=== PATIENT | male | born 2005 | race Hispanic/Latino ===

== ENCOUNTER 2024-09-21 00:10 | Emergency (ER) | payer OTHER, SELFPAY ==
--- NOTE | 2024-09-21 01:09 | EDPHYS ---
Physician Documentation [facility] Name: Neo Greene Age: 19 yrs Sex: Male : 2005 Arrival Date: 09/21/2024 Time: 00:10 Bed IW2 Private MD: ED Physician Kike Forbes HPI: 09/21 00:41 This 19 yrs old Male presents to ER via Wheelchair with complaints of Knee sb4 Injury. 00:41 The patient presents with an injury, pain, that is acute. The complaints affect the sb4 right knee. Context: The problem was sustained at a sports field or court, resulted from twisting of the extremity, the patient is not able to bear weight, the patient is not able to ambulate, Problem is a result from a previous injury: No. Onset: The symptoms/episode began/occurred just prior to arrival. Modifying factors:. Patient states he twisted his knee awkwardly while playing soccer this evening. States he cannot bear weight. Believes he tore his ACL. Historical: - Allergies: 00:35 No Known Allergies; ha1 - PMHx: 00:35 None; ha1 - PSHx: 00:35 None; ha1 - Immunization history:: Adult Immunizations up to date. - Infectious Disease History:: Denies. - Social history:: Smoking status: Patient denies any tobacco usage or history of. ROS: 00:41 Constitutional: Negative for fever, chills, and weight loss, sb4 00:41 MS/extremity: Positive for injury or acute deformity, pain, of the right knee, 00:41 All other systems are negative, Exam: 00:41 Constitutional: This is a well developed, well nourished patient who is awake, alert, sb4 and in no acute distress. Head/Face: Normocephalic, atraumatic. Eyes: Extra-ocular motions intact. Periorbital areas with no swelling, redness, or edema. ENT: Mucous membranes moist. Respiratory: No increased work of breathing, no retractions or nasal flaring. Abdomen/GI: Soft, non-tender, no distension. Skin: Warm, dry with normal turgor. Normal color with no rashes, no lesions, and no evidence of cellulitis. 00:41 Musculoskeletal/extremity: Joints: the right knee displays painful range of motion, swelling, tenderness, Vital Signs: 00:30 BP 117 / 59; Pulse 68; Resp 17; Temp 98.3; Pulse Ox 99% on R/A; Weight 86.18 kg; Height ha1 5 ft. 6 in. ; 00:30 Body Mass Index 30.67 (86.18 kg, 167.64 cm) ha1 MDM: 00:16 Medical Screening Exam initiated sb4 00:43 Differential diagnosis: Meniscal injury, MCL sprain/tear, fracture. sb4 01:07 Data reviewed: vital signs, nurses notes, radiologic studies, and as a result, I will sb4 discharge patient. Counseling: I had a detailed discussion with the patient and/or guardian regarding the historical points, exam findings, and any diagnostic results supporting the discharge/admit diagnosis, radiology results, the need for outpatient follow up, a orthopedic surgeon, to return to the emergency department if symptoms worsen or persist or if there are any questions or concerns that arise at home. 01:12 Independent interpretation of the following test(s) in the Emergency Department X-Ray: sb4 My interpretation is My interpretation of the right knee x-ray images is no acute fracture or dislocation. 09/21 00:32 Order name: Knee Right 3 View XRAY sb4 09/21 00:32 Order name: Knee Immobilizer; Complete Time: 01:47 sb4 09/21 00:32 Order name: Crutches; Complete Time: 01:47 sb4 Administered Medications: No medications were administered Disposition: 21:49 Co-signature as Attending Physician, Kike Forbes MD I agree with the assessment sp4 and plan of care. I reviewed the patient's care provided by the Advanced Practice Provider and agree with the diagnosis and treatment plan. Disposition Summary: 09/21/24 01:08 Discharge Ordered Notes: Location: Home sb4 Problem: new sb4 Symptoms: are unchanged sb4 Condition: Stable sb4 Diagnosis - Acute ligamentous injury of right knee sb4 Followup: sb4 - With: Jose Cruz Fitzpatrick MD - When: As needed - Reason: Further diagnostic work-up, Recheck today's complaints, Re-evaluation by your physician Followup: sb4 - With: Gil Encinas MD - When: As needed - Reason: Further diagnostic work-up, Recheck today's complaints, Re-evaluation by your physician Followup: sb4 - With: Yinka Yeager MD - When: As needed - Reason: Further diagnostic work-up, Recheck today's complaints, Re-evaluation by your physician Discharge Instructions: - Discharge Summary Sheet sb4 - How to Use a Knee Immobilizer, [id number] sb4 - Acute Knee Pain, Adult, [id number] sb4 Forms: - Patient Portal Instructions sb4 - Leadership Thank You Letter sb4 Prescriptions: - meloxicam 7.5 mg Oral tablet - take 1 tablet ORAL route daily; 14 tablet; Refills: 0, Product Selection sb4 Permitted - Cyclobenzaprine 5 mg Oral Tablet - take 1 tablet ORAL route 3 times per day As needed; 15 tablet; Refills: 0, sb4 Product Selection Permitted Signatures: Dispatcher [employer] Minnie Pandya RN RN ha1 Danae Sewell PA-C PA-C sb4 Kike Forbes MD MD sp4
--- NOTE | 2024-09-21 01:09 | ER ---
Nurse's Notes [facility] Name: Neo Greene Age: 19 yrs Sex: Male : 2005 Arrival Date: 09/21/2024 Time: 00:10 Bed IW2 Private MD: Diagnosis: Acute ligamentous injury of right knee Presentation: 09/21 00:33 Chief complaint: Patient states: "I hurt my right knee playing soccer earlier tonight. ha1 I think I tore my ACL". Coronavirus screen:. Coronavirus screen: At this time, the client does not indicate any symptoms associated with coronavirus-19. Ebola Screen: No symptoms or risks identified at this time. Initial Sepsis Screen: Does the patient meet any 2 criteria? No. Patient's initial sepsis screen is negative. Does the patient have a suspected source of infection? No. Patient's initial sepsis screen is negative. Risk Assessment: Do you want to hurt yourself or someone else? Patient reports no desire to harm self or others. Onset of symptoms was September 20, 2024. Care prior to arrival: None. Activity prior to arrival: None. 00:33 Method Of Arrival: Wheelchair ha1 00:33 Acuity: CONCEPCION 4 ha1 Triage Assessment: 00:32 General: Appears comfortable, Behavior is cooperative, appropriate for age. Pain: ha1 Complains of pain in lateral aspect of right knee Pain currently is 6 out of 10 on a pain scale. Quality of pain is described as aching. Neuro: Level of Consciousness is awake, alert, obeys commands, Oriented to person, place, time, situation. Cardiovascular: Patient's skin is warm and dry. Respiratory: Airway is patent Respiratory effort is even, unlabored, Respiratory pattern is regular, symmetrical. GI: No signs and/or symptoms were reported involving the gastrointestinal system. Musculoskeletal: Circulation, motion, and sensation intact. Range of motion: intact in all extremities. Injury Description: pain on the right knee. Historical: - Allergies: 00:35 No Known Allergies; ha1 - PMHx: 00:35 None; ha1 - PSHx: 00:35 None; ha1 - Immunization history:: Adult Immunizations up to date. - Infectious Disease History:: Denies. - Social history:: Smoking status: Patient denies any tobacco usage or history of. Screenin:48 [facility] ED Fall Risk Assessment (Adult) History of falling in the last 3 months, ha1 including since admission No falls in past 3 months (0 pts) Confusion or Disorientation No (0 pts) Intoxicated or Sedated No (0 pts) Impaired Gait Yes (1 pt) Mobility Assist Device Used Yes (1 pt) Altered Elimination No (0 pt) Score/Fall Risk Level 0 - 2 = Low Risk Oriented to surroundings, Maintained a safe environment, Educated pt \\T\\ family on fall prevention, incl call for assistance when getting out of bed, Hourly rounding (assess needs \\T\\ fall precautionary measures) done. Abuse screen: Denies threats or abuse. Denies injuries from another. Nutritional screening: No deficits noted. Tuberculosis screening: No symptoms or risk factors identified. Assessment: 01:00 Reassessment: SEE TRIAGE ASSESSMENT. ha1 01:30 Reassessment: Patient and/or family updated on plan of care and expected duration. Pain ha1 level reassessed. Patient is alert, oriented x 3, equal unlabored respirations, skin warm/dry/pink. Vital Signs: 00:30 BP 117 / 59; Pulse 68; Resp 17; Temp 98.3; Pulse Ox 99% on R/A; Weight 86.18 kg; Height ha1 5 ft. 6 in. ; 00:30 Body Mass Index 30.67 (86.18 kg, 167.64 cm) ha1 ED Course: 00:12 Patient arrived in ED. jj6 00:15 Danae Sewell PA-C is PHCP. sb4 00:15 Kike Forbes MD is Attending Physician. sb4 00:32 Patient has correct armband on for positive identification. Call light in reach. Side ha1 rails up X 1. Adult w/ patient. 00:32 Provided Education on: plan of care. ha1 00:35 Triage completed. ha1 01:07 Jose Cruz Fitzpatrick MD is Referral Physician. sb4 01:08 Gil Encinas MD is Referral Physician. sb4 01:08 Yinka Yeager MD is Referral Physician. sb4 01:09 Knee Right 3 View XRAY In Process Unspecified. EDMS 01:48 Arm band placed on right wrist. ha1 01:48 No provider procedures requiring assistance completed. Patient did not have IV access ha1 during this emergency room visit. Administered Medications: No medications were administered Medication: 01:49 VIS not applicable for this client. ha1 Outcome: 01:08 Discharge ordered by MD. saavedra 01:48 Discharged to home with crutches, with family, ha1 01:48 Condition: stable 01:48 Discharge instructions given to patient, family, Instructed on discharge instructions, follow up and referral plans. Demonstrated understanding of instructions, follow-up care, 01:50 Patient left the ED. ha1 Signatures: Dispatcher [employer] EDYulisa [id number] Minnie Gayle RN RN ha1 Danae Sewell, PA-C PA-C quentin
[2024-09-21 02:34] VITALS: BP 117/59; TEMP 98.3; O2SAT 99
--- NOTE | 2024-09-21 02:40 | RAD REPORT ---
EXAM DESCRIPTION: Knee Right 3 View RadLex: XR KNEE 3 VIEWS RIGHT CLINICAL HISTORY: 19 years Male, PAIN COMPARISON: None. FINDINGS: 3 views of the right knee. Normal osseous mineralization and alignment. No acute fracture or dislocat ion. Trace joint effusion. Joint spaces are intact. Soft tissues are unremarkable. IMPRESSION: Trace joint effusion. No acute fracture identified. Electronically signed by: Preeti Cameron MD 09/21/2024 02:31 AM CDT RP Due to temporary technical issues with the PACS/G-mode reporting system, reports are being jenniffer d by the in-house radiologist without review as a courtesy to ensure prompt reporting the interpreting radiologist is fully responsible for the content of the report. Transcribed Date/Time: 09/21/2024 2:39 AM
== END 2024-09-21 01:50 | disposition home or self-care (01) ==
LOC: ER 00:10
DX: S89.91XA Unspecified injury of right lower leg, initial encounter (principal)
CPT/HCPCS: 99282